=== PATIENT | female | born 1990 ===

== ENCOUNTER 2018-01-04 05:56 | Inpatient (IN) ==
[2018-01-04] MEDS ORDERED: ceFAZolin 2,000 MG in PREMIX 1 EACH IV ONE (06:15)
[2018-01-04] MEDS ORDERED: CITRIC ACID/SODIUM CITRATE 30 ML UDCUP PO ONE (06:15)
[2018-01-04] MEDS ORDERED: FAMOTIDINE 20 MG/2 ML VIAL IV ONE (06:15)
[2018-01-04] MEDS: LACTATED RINGERS 1,000 ML IV SCH ×2 (06:35→09:08)
[2018-01-04 06:57] LABS: Basophils % 0.2 % (0.0-0.8); Eosinophils # 0.1 10*3/uL (0.0-0.87); Hematocrit 34.5 VOL% (35.7-47.0); Hemoglobin 12.3 GM/DL (12.0-16.0); Immature Granulocytes % 0.8 %; Immature Granulocytes Absolute 0.04 #; Lymphocytes # 1.5 10*3/uL (1.4-4.0); Mean Corpuscular HGB Conc 35.7 GM/DL (32-36); Mean Corpuscular Hemoglobin 33 PG (27-34); Mean Platelet Volume 11.4 FL (9.6-12.0); Monocytes # 0.5 10*3/uL (0.11-0.8); Monocytes % 9.4 % (1.7-12.7); Neutrophils # 2.9 10*3/uL (1.4-7.4); Neutrophils % 57.6 % (38.7-73.9); Platelet Count 131 T/CUMM (130-400); Red Blood Count 3.79 MC/CUMM (3.8-5.5); Red Cell Distribution Width 13.7 % (9.3-17.3)
[2018-01-04 07:31] LABS: Albumin 2.5 G/DL (3.4-5.0); Bilirubin,Total 0.5 MG/DL (0.2-1.0); Calcium 8.4 MG/DL (8.5-10.1); Osmolality,Calculated 275.4 MOS/KG (273-304); Potassium 3.6 MMOL/L (3.5-5.1); Total Protein 6.3 G/DL (6.4-8.3)
[2018-01-04] MEDS ORDERED: OXYTOCIN 10 UNIT/ML VIAL IM ONE (08:11)
[2018-01-04] MEDS ORDERED: OXYTOCIN/LR 30 UNIT/1,000 ML BAG IV ONE (08:11)
[2018-01-04] MEDS ORDERED: ACETAMINOPHEN 325 MG TABLET PO PRN (10:20)
[2018-01-04] MEDS ORDERED: RHO(D) IMMUNE GLOBULIN 300 MCG SYRINGE IM ONE (10:20)
[2018-01-04] MEDS ORDERED: ONDANSETRON 4 MG/2 ML VIAL IV PRN (10:20)
[2018-01-04] MEDS ORDERED: OXYTOCIN/LR 20 UNIT/1,000 ML BAG IV ONE (10:20)
[2018-01-04] MEDS ORDERED: SIMETHICONE CHEW 80 MG TABLET PO PRN (10:20)
[2018-01-04 10:27] LABS: Cord Venous Blood HCO3 21.1 MMOL/L; Cord Venous Blood PCO2 35.2 MMHG; Cord Venous Blood PO2 38.8
[2018-01-04] MEDS ORDERED: diphenhydrAMINE 50 MG/1 ML VIAL IV PRN (10:29)
[2018-01-04] MEDS ORDERED: hydrOXYzine HCL 25 MG/1 ML VIAL IM PRN (10:29)
[2018-01-04] MEDS ORDERED: HYDROmorphone 2 MG/1 ML VIAL IV PRN (10:29)
[2018-01-04 10:32] LABS: Apearance,Urine CLEAR (Clear); Bacteria,Urine Occasional /HPF (Few); Bilirubin,Urine Negative (Negative); Blood, Urine Negative (Negative); Glucose,Urine (UA) Negative (Negative); Ketones,Urine Negative (Negative); Mucus,Urine Occasional /LPF (Occasional); Nitrite,Urine Positive (Negative); Protein,Urine Negative; RBC,Urine <1 /HPF (0-4); Squamous Epithelial Cell,Urine Occasional /HPF (0-10); Urine Color Yellow (Yellow); Urine Specific Gravity 1.016 (1.001-1.035); WBC,Urine 10 /HPF (0-6)
[2018-01-04] MEDS ORDERED: fentaNYL 100 MCG/2 ML VIAL ONE (10:38)
[2018-01-04] MEDS ORDERED: MORPHINE 10 MG/10 ML VIAL ONE (10:38)
[2018-01-04] MEDS ORDERED: BUPIVACAINE SPINAL 0.75% 2 ML AMP SPINAL ONE (10:38)
[2018-01-04] MEDS ORDERED: PHENYLEPHRINE 1 MG/10 ML SYRINGE IV ONE (10:39)
[2018-01-04] MEDS ORDERED: ONDANSETRON 4 MG/2 ML VIAL ONE (10:39)
[2018-01-04] MEDS ORDERED: ePHEDrine 50 MG/ML AMP ONE (10:39)
[2018-01-04] MEDS ORDERED: PROMETHAZINE 25 MG/1 ML VIAL IM PRN (14:42)
[2018-01-04] MEDS: ceFAZolin 1,000 MG in SYRINGE 1 EACH IV SCH (18:20)
[2018-01-04 18:38] LABS: Basophils % 0.2 % (0.0-0.8); Eosinophils % 0.1 % (0.00-10.9); Hematocrit 33.9 VOL% (35.7-47.0); Immature Granulocytes % 0.4 %; Immature Granulocytes Absolute 0.05 #; Lymphocytes # 0.8 10*3/uL (1.4-4.0); Mean Corpuscular HGB Conc 35.4 GM/DL (32-36); Mean Corpuscular Hemoglobin 33 PG (27-34); Mean Corpuscular Volume 93.4 FL (87-102); Monocytes # 0.5 10*3/uL (0.11-0.8); Monocytes % 4.8 % (1.7-12.7); Neutrophils # 9.9 10*3/uL (1.4-7.4); Neutrophils % 87.5 % (38.7-73.9); Platelet Count 129 T/CUMM (130-400); Red Blood Count 3.63 MC/CUMM (3.8-5.5); Red Cell Distribution Width 13.5 % (9.3-17.3); White Blood Count 11.4 T/CUMM (4-12)
[2018-01-04] MEDS: IBUPROFEN 800 MG TABLET PO PRN (21:38)
[2018-01-04] MEDS: DOCUSATE SODIUM 100 MG CAPSULE PO SCH (21:38)
[2018-01-05] MEDS: LACTATED RINGERS 1,000 ML IV SCH ×4 (00:04→23:10)
[2018-01-05] MEDS ORDERED: oxyCODONE/ACETAMINOPHEN 5-325 MG TABLET PO PRN (01:53)
[2018-01-05] MEDS ORDERED: ceFAZolin 1,000 MG in SYRINGE 1 EACH IV SCH (02:30)
[2018-01-05 05:26] LABS: Basophils % 0.3 % (0.0-0.8); Eosinophils # 0.1 10*3/uL (0.0-0.87); Eosinophils % 0.9 % (0.00-10.9); Hemoglobin 10.2 GM/DL (12.0-16.0); Immature Granulocytes % 0.3 %; Immature Granulocytes Absolute 0.02 #; Lymphocytes # 1.3 10*3/uL (1.4-4.0); Lymphocytes % 18.8 % (21.3-54.2); Mean Corpuscular HGB Conc 35.2 GM/DL (32-36); Mean Corpuscular Hemoglobin 33 PG (27-34); Mean Corpuscular Volume 92.7 FL (87-102); Mean Platelet Volume 11.6 FL (9.6-12.0); Monocytes # 0.7 10*3/uL (0.11-0.8); Monocytes % 9.4 % (1.7-12.7); Neutrophils # 4.8 10*3/uL (1.4-7.4); Neutrophils % 70.3 % (38.7-73.9); Platelet Count 107 T/CUMM (130-400); Red Blood Count 3.13 MC/CUMM (3.8-5.5); Red Cell Distribution Width 13.5 % (9.3-17.3); White Blood Count 6.9 T/CUMM (4-12)
[2018-01-05] MEDS: DOCUSATE SODIUM 100 MG CAPSULE PO SCH ×2 (08:51→20:12)
[2018-01-05] MEDS: MULTIVITAMIN (PRENATAL) TABLET PO SCH (08:51)
[2018-01-05] MEDS: MAGNESIUM HYDROXIDE SUSP 30 ML UDCUP PO PRN ×2 (08:51→18:06)
[2018-01-05] MEDS: IBUPROFEN 800 MG TABLET PO PRN ×2 (09:13→20:12)
[2018-01-05] MEDS: oxyCODONE/ACETAMINOPHEN 5-325 MG TABLET PO PRN ×2 (09:14→20:13)
[2018-01-05] MEDS: ceFAZolin 1,000 MG in SYRINGE 1 EACH IV SCH (10:39)
[2018-01-05] MEDS: SULFAMETHOX/TRIMETHOPRIM 800-160 MG TABLET PO SCH (20:12)
[2018-01-06] MEDS: MULTIVITAMIN (PRENATAL) TABLET PO SCH (08:58)
[2018-01-06] MEDS: DOCUSATE SODIUM 100 MG CAPSULE PO SCH (08:59)
[2018-01-06 10:18] VITALS: BP 115/74
[2018-01-06] MEDS: SULFAMETHOX/TRIMETHOPRIM 800-160 MG TABLET PO SCH (10:51)
== END 2018-01-06 13:15 | disposition home or self-care (01) | DRG 766 ==
LOC: N.LDOUT 05:56 → N.LD 06:03 → N.OB 14:25
PROVIDERS: ADMIT Obstetrics & Gynecology; ATTEND Obstetrics & Gynecology